=== PATIENT | female | born 1975 | race Caucasian/White ===

== ENCOUNTER 2020-03-22 15:54 | Emergency (ER) | payer MEDICAID ==
[~2020-03-22] VITALS: Ht 157.5 cm; Wt 70.0 kg
[2020-03-22 15:58] VITALS: Ht 157.5 cm; Wt 70.0 kg
[2020-03-22 16:42] LABS: BASOPHIL % 0.3 % (0-2); PLATELET COUNT 303 x10^3mcL (130-400)
[2020-03-22 16:50] LABS: RED CELL DISTRIBUTION WIDTH 16.1 % (11.5-14.5)
[2020-03-22 17:06] LABS: CARBON DIOXIDE 24.9 mmol/L (21-32); CHLORIDE SERUM 98 mmol/L (98-107); CREATININE SERUM 0.6 mg/dL (0.6-1.0); GFR1 > 60 mL/min; GLUCOSE SERUM 313 mg/dL (74-106); POTASSIUM SERUM 3.7 mmol/L (3.5-5.1); SODIUM SERUM 134 mmol/L (136-145)
[2020-03-22 17:10] LABS: ALBUMIN 3.8 g/dL (3.4-5.0); ALKALINE PHOSPHATASE 117 U/L (46-116); ALT/SGPT 15 U/L (14-59); AMYLASE 27 U/L (25-115); AST/SGOT 10 U/L (15-37); BILIRUBIN TOTAL 0.4 mg/dL (0.20-1.00); LIPASE 69 IU/L (73-393); TOTAL PROTEIN, SERUM 8.1 g/dL (6.4-8.2)
[2020-03-22 18:11] VITALS: BP 136/72
[2020-03-22 19:36] LABS: rbc morphology (normal/abnorm) ABNORMAL (NORMAL)
== END 2020-03-22 18:43 | disposition home or self-care (01) ==
LOC: ED 15:54
PROVIDERS: Emergency Medicine
DX: K59.00 Constipation, unspecified (principal)
CPT/HCPCS: J1885; J7030